=== PATIENT | female | born 1965 | race Caucasian/White ===

== ENCOUNTER 2016-11-12 18:00 | Inpatient (IN) | payer MEDICAID ==
[~2016-11-12] VITALS: Ht 162.6 cm; Wt 83.0 kg
[~2016-11-12 18:00] MED LIST: ALPRAZOLAM; AMITRIPTYLINE H10 M1 PO; ASPIRIN E.C. 8181 MG PO; BACTRIM 400 MG-1 TAB PO; CANA100T PO; CLONAZEPAM PO; COLACE 100100 MG/CAP PO; DESYREL 50MG50 MG PO; DILAUDID 2MG TAB2 MG PO; DITROPAN 5MG TAB5 MG PO; FLAGYL500 MG PO; HARVONI PO; HUMULIN N 10100 U/ML SC; HUMULIN R 10100 U/ML SC; HYDROCODONE/APAP; IBU800 M1 PO; INSULIN 50/5100 U/ML SQ; LANTUS100 U/ML SC; LEVAQUIN 750MG750 M1 PO; LEVEMIR100 U/ML SC; LEVEMIR100 U/ML SQ; LITHIUM CARBON150 MG PO; LORTAB 5/500 501 TAB PO; LYRICA50 MG PO; MACROBID 1100 MG/CAP PO; MIRALAX PA17 GM/Dose PO; NAPROSYN500 MG PO; NEURONTIN100 MG PO; NEURONTIN300 MG/CAP PO; NORCO 325 MG-101 TAB; NORCO 325 MG-101 TAB PO; NORCO 325 MG-51 TAB PO; NORCO 325 MG-7.1 TAB PO; NOVOLOG 100U100 U/M1 SC; NOVOLOG 100U100 U/M1 SQ; NOVOLOG FLEX100 U/ML SC; PAXIL 10MG10 MG PO; PAXIL PO; PERCOCET 325 MG1 TA2 PO; PERCR 7.5 PO; PRILOSEC 20MG20 MG PO; REGLAN 10MG10 MG/TAB PO; SENNA8.6 MG PO; TEGRETOL; TRIAMCINOLONE0.1% TP; ULTRAM 50MG TAB50 MG PO; VANCOCIN H125 MG/CAP PO; VICODIN 5/5001 UDTAB PO; ZOFRAN ODT4 MG PO; ZOFRAN ODT8 MG PO; ZOFRAN4 MG PO; ZOFRAN8 MG PO
[2016-11-12 19:07] LABS: BASO % 0.4 % (0.0-2.0); EOS # 0.1 (0.0-0.7); GRAN # 1.4 (1.4-6.5); GRAN % 54.9 % (42.2-75.2); LYMPH # 0.8 (1.2-3.4); LYMPH % 33.5 % (20.0-51.0); MEAN CELL VOLUME 77 fl (80.0-100.0); MEAN CORPUSCULAR HGB CONC 29 g/dl (33.0-37.0); MEAN PLATELET VOLUME 11.7 fl (7.4-10.4); MONO # 0.2 (0.1-0.6); MONO % 6.8 % (1.7-9.3); PLATELET COUNT 122 K/mm3 (130-400); REDCELL DISTRIBUTION WIDTH-CV 16.9 % (11.5-14.5); WHITE BLOOD COUNT 2.5 K/mm3 (4.8-10.8)
[2016-11-12 19:10] VITALS: BP 157/80; PULSE 94; TEMP 98.1
[2016-11-12 19:12] LABS: HEMATOCRIT 20.7 % (37.0-47.0); HEMOGLOBIN 5.9 g/dl (12.5-16.0); MEAN CORPUSCULAR HEMOGLOBIN 22 pg (27.0-31.0)
[2016-11-12] MEDS ORDERED: LEVEMIR100 U/ML SQ (19:24)
[2016-11-12] MEDS ORDERED: LYRICA 50MG CAP50 MG PO (19:26)
[2016-11-12] MEDS ORDERED: AMITRIPTYLINE H25 M1 PO (19:27)
[2016-11-12] MEDS ORDERED: ZESTRIL 5MG5 MG PO (19:28)
[2016-11-12] MEDS ORDERED: PRILOSEC 20MG20 MG PO (19:29)
[2016-11-12] MEDS ORDERED: [UNRECOGNIZED DRUG - OTHER] (19:30)
[2016-11-12 20:33] LABS: INR 1.1 (0.8-3.0); PROTHROMBIN TIME 12.1 SECONDS (9.7-12.8)
[2016-11-13] VITALS (18 sets, daily range): BP systolic 103–177; BP diastolic 63–80; PULSE 85–111; TEMP 97.8–98.9
[2016-11-13 08:55] LABS: BASO % 0.4 % (0.0-2.0); EOS # 0.1 (0.0-0.7); GRAN # 1.4 (1.4-6.5); GRAN % 51.8 % (42.2-75.2); LYMPH % 34.7 % (20.0-51.0); MEAN CELL VOLUME 79 fl (80.0-100.0); MEAN CORPUSCULAR HGB CONC 28 g/dl (33.0-37.0); MEAN PLATELET VOLUME 10.5 fl (7.4-10.4); MONO # 0.2 (0.1-0.6); MONO % 8.7 % (1.7-9.3); PLATELET COUNT 118 K/mm3 (130-400); RED BLOOD COUNT 3.09 M/mm3 (4.10-5.30); REDCELL DISTRIBUTION WIDTH-CV 17.1 % (11.5-14.5); WHITE BLOOD COUNT 2.8 K/mm3 (4.8-10.8)
[2016-11-13 08:58] LABS: HEMATOCRIT 24.4 % (37.0-47.0); HEMOGLOBIN 6.9 g/dl (12.5-16.0); MEAN CORPUSCULAR HEMOGLOBIN 22 pg (27.0-31.0)
[2016-11-13 09:11] LABS: ALBUMIN 3.5 gm/dL (3.5-5.0); CALCIUM 8.5 mg/dL (8.4-10.2); CREATININE, serum 0.72 mg/dL (0.52-1.25); POTASSIUM 4.2 mmol/L (3.4-5.0); TOTAL PROTEIN 7.3 gm/dL (6.4-8.2)
[2016-11-13 09:36] LABS: BILIRUBIN,TOTAL 0.7 mg/dL (0.0-1.0)
[2016-11-13 09:37] LABS: BILIRUBIN,DIRECT 0.5 mg/dL (0.0-0.4)
[2016-11-13 18:54] LABS: HEMATOCRIT 27.3 % (37.0-47.0); HEMOGLOBIN 8.3 g/dl (12.5-16.0)
[2016-11-14 04:10] VITALS: BP 155/75; PULSE 93; TEMP 98.5
[2016-11-14 07:31] LABS: HEMOGLOBIN 7.8 g/dl (12.5-16.0)
[2016-11-14 07:39] VITALS: BP 153/71; PULSE 91; TEMP 97
[2016-11-14 08:11] VITALS: BP 154/72; PULSE 93; TEMP 97
[2016-11-14 11:34] LABS: HEMATOCRIT 27.8 % (37.0-47.0); HEMOGLOBIN 8.3 g/dl (12.5-16.0)
[2016-11-14 11:40] VITALS: BP 144/74; PULSE 91; TEMP 98.4
[2016-11-14 16:05] VITALS: BP 153/77; PULSE 86; TEMP 97.1
[2016-11-14] MEDS ORDERED: FERROUS SU325 MG/TAB PO (16:52)
== END 2016-11-14 17:31 | disposition home or self-care (01) | DRG 812 ==
LOC: MEDICAL 18:00
PROVIDERS: Family Medicine; Internal Medicine; Internal Medicine Gastroenterology; Physician Assistant
PROC: 0DJ08ZZ Inspection of Upper Intestinal Tract, Via Natural or Artificial Opening Endoscopic (ICD-10-PCS; principal; 2016-11-14 14:00)
PROC: 0DJD8ZZ Inspection of Lower Intestinal Tract, Via Natural or Artificial Opening Endoscopic (ICD-10-PCS; 2016-11-14 14:00)
DX: D50.0 Iron deficiency anemia secondary to blood loss (chronic) (principal); I85.10 Secondary esophageal varices without bleeding; K64.8 Other hemorrhoids; K74.60 Unspecified cirrhosis of liver; B19.20 Unspecified viral hepatitis C without hepatic coma; E11.42 Type 2 diabetes mellitus with diabetic polyneuropathy; F31.9 Bipolar disorder, unspecified; D69.6 Thrombocytopenia, unspecified; R51 Headache; Z79.4 Long term (current) use of insulin; Z86.73 Personal history of transient ischemic attack (TIA), and cerebral infarction without residual deficits
CPT/HCPCS: 99222-AI; 99233-AI; 99239; C9113; J1170; J1815; J1940; J2405; J2550; J2704; J7030; P9016

== ENCOUNTER 2018-06-18 20:06 | Emergency (ER) | payer MEDICAID ==
[~2018-06-18] VITALS: Ht 162.6 cm; Wt 64.5 kg
[~2018-06-18 20:06] MED LIST changes: +AMITRIPTYLINE H25 M1 PO; +FERROUS SU325 MG/TAB PO; +LYRICA 50MG CAP50 MG PO; +ZESTRIL 5MG5 MG PO; +[UNRECOGNIZED DRUG - OTHER]
[2018-06-18 20:14] VITALS: TEMP 97.7
[2018-06-18 20:26] LABS: COLLECTION METHOD CLEAN CATCH
[2018-06-18 20:36] LABS: MUCOUS Present /lpf; PH 5 (5-8); SQUAMOUS EPITHELIAL None Seen /hpf; URINE APPEARANCE Clear; URINE BACTERIA None Seen /hpf; URINE BILIRUBIN Negative (NEGATIVE); URINE BLOOD Negative (NEGATIVE); URINE COLOR Yellow; URINE GLUCOSE 1+ (NEGATIVE); URINE KETONE Negative (NEGATIVE); URINE LEUKOCYTE ESTERASE Negative (NEGATIVE); URINE NITRATE Negative (NEGATIVE); URINE PROTEIN(semi-quant) 2+ (NEGATIVE); URINE UROBILINOGEN Negative (NEGATIVE)
[2018-06-18 20:55] LABS: BASO % 0.4 % (0.0-2.0); EOS # 0.1 (0.0-0.7); EOS % 5.2 % (0-4.0); GRAN # 1.6 (1.4-6.5); GRAN % 58.6 % (42.2-75.2); LYMPH # 0.7 (1.2-3.4); LYMPH % 24.7 % (20.0-51.0); MEAN CELL VOLUME 85 fl (80.0-100.0); MEAN CORPUSCULAR HGB CONC 29 g/dl (33.0-37.0); MEAN PLATELET VOLUME 10.6 fl (7.4-10.4); MONO # 0.3 (0.1-0.6); MONO % 10.7 % (1.7-9.3); PLATELET COUNT 134 K/mm3 (130-400); RED BLOOD COUNT 3.41 M/mm3 (4.10-5.30)
[2018-06-18 21:01] LABS: HEMOGLOBIN 8.4 g/dl (12.5-16.0); MEAN CORPUSCULAR HEMOGLOBIN 25 pg (27.0-31.0)
[2018-06-18 21:05] LABS: ALBUMIN 2.9 gm/dL (3.5-5.0); BILIRUBIN,TOTAL 0.2 mg/dL (0.0-1.0); CALCIUM 8.3 mg/dL (8.4-10.2); CREATININE, serum 0.76 (0.52-1.25); POTASSIUM 3.8 mmol/L (3.4-5.0); TOTAL PROTEIN 6.4 gm/dL (6.4-8.2)
[2018-06-18 21:08] LABS: INR 1.1 (0.8-3.0); PROTHROMBIN TIME 12.8 SECONDS (9.7-12.8)
[2018-06-18] MEDS ORDERED: PRINIVIL20 MG PO (21:15)
[2018-06-18] MEDS ORDERED: LASIX 20MG TABL20 MG PO (21:16)
[2018-06-18] MEDS ORDERED: CONSTULOSE 20G/30ML PO (21:16)
[2018-06-18] MEDS ORDERED: NEURONTIN300 MG/CAP PO (21:19)
[2018-06-18 22:17] LABS: PERITONEAL -POLYMORPHONUCLEAR 7.4 % (0-25); PERITONEAL FLUID RBC 1000 /mm3 (0-0)
[2018-06-18] MEDS ORDERED: NORCO 325 MG-51 TAB PO (22:43)
[2018-06-18 23:30] VITALS: BP 127/66; PULSE 81
== END 2018-06-18 23:37 | disposition home or self-care (01) ==
LOC: COL.ER 20:06
PROVIDERS: Family Medicine
DX: K74.60 Unspecified cirrhosis of liver (principal); R18.8 Other ascites; E11.9 Type 2 diabetes mellitus without complications; I10 Essential (primary) hypertension; Z87.891 Personal history of nicotine dependence; Z79.4 Long term (current) use of insulin
CPT/HCPCS: J2270; J2405; J7030

== ENCOUNTER 2018-06-25 12:35 | Emergency (ER) | payer MEDICAID ==
[~2018-06-25] VITALS: Ht 162.6 cm; Wt 65.5 kg
[~2018-06-25 12:35] MED LIST changes: +CONSTULOSE 20G/30ML PO; +LASIX 20MG TABL20 MG PO; +PRINIVIL20 MG PO
[2018-06-25 12:40] VITALS: TEMP 97.8
[2018-06-25 13:18] LABS: BASO % 0.3 % (0.0-2.0); EOS # 0.1 (0.0-0.7); EOS % 3.7 % (0-4.0); GRAN # 2.1 (1.4-6.5); GRAN % 69.4 % (42.2-75.2); LYMPH # 0.6 (1.2-3.4); LYMPH % 19.9 % (20.0-51.0); MEAN CELL VOLUME 85 fl (80.0-100.0); MEAN CORPUSCULAR HGB CONC 30 g/dl (33.0-37.0); MEAN PLATELET VOLUME 9.8 fl (7.4-10.4); MONO # 0.2 (0.1-0.6); MONO % 6.4 % (1.7-9.3); PLATELET COUNT 125 K/mm3 (130-400); RED BLOOD COUNT 3.47 M/mm3 (4.10-5.30)
[2018-06-25 13:21] LABS: BILIRUBIN,TOTAL 0.3 mg/dL (0.0-1.0); C-REACTIVE PROTEIN 0.6 mg/dL (0.0-0.9); CREATININE, serum 0.66 (0.52-1.25); POTASSIUM 4.6 mmol/L (3.4-5.0); TOTAL PROTEIN 6.5 gm/dL (6.4-8.2)
[2018-06-25 13:22] LABS: HEMATOCRIT 29.5 % (37.0-47.0); HEMOGLOBIN 8.8 g/dl (12.5-16.0); MEAN CORPUSCULAR HEMOGLOBIN 25 pg (27.0-31.0)
[2018-06-25 14:39] VITALS: BP 131/66; PULSE 74
[2018-06-27] MEDS ORDERED: ALDACTONE50 MG PO (11:32)
[2018-06-27] MEDS ORDERED: INDERAL LA 60MG60 MG PO (11:32)
[2018-06-27] MEDS ORDERED: LASIX 40MG TABL40 MG PO (11:34)
[2018-06-27] MEDS ORDERED: REGLAN 10MG10 MG/TAB PO (11:35)
== END 2018-06-25 14:49 | disposition home or self-care (01) ==
LOC: COL.ER 12:35
PROVIDERS: Physician Assistant
DX: R10.9 Unspecified abdominal pain (principal); E11.9 Type 2 diabetes mellitus without complications; F32.9 Major depressive disorder, single episode, unspecified; F41.9 Anxiety disorder, unspecified; K58.9 Irritable bowel syndrome, unspecified; Z86.19 Personal history of other infectious and parasitic diseases; Z79.4 Long term (current) use of insulin
CPT/HCPCS: J2270; J2405; J7030

== ENCOUNTER → 2018-06-27 | Outpatient (CLI) | payer MEDICAID ==
[~2018-06-27] VITALS: Ht 162.6 cm; Wt 61.8 kg
[~2018-06-27] MED LIST changes: +ALDACTONE50 MG PO; +INDERAL LA 60MG60 MG PO; +LASIX 40MG TABL40 MG PO
[2018-06-27 11:21] VITALS: BP 160/83; PULSE 74
[2018-06-27 13:45] VITALS: BP 155/98; PULSE 81
--- NOTE | 2018-06-27 14:00 | NUR ---
pt out to car per wheelchair denies complaints at this time. Pt up and into vehicle without difficulty.
== END ==
LOC: COL.RAD 11:02
DX: B18.2 Chronic viral hepatitis C (principal); K74.60 Unspecified cirrhosis of liver
CPT/HCPCS: 19804

== ENCOUNTER 2018-07-03 22:11 | Emergency (ER) | payer SELFPAY ==
[~2018-07-03] VITALS: Ht 162.6 cm; Wt 63.6 kg
[2018-07-03 22:15] VITALS: TEMP 98.3
[2018-07-03 23:17] LABS: BASO % 0.7 % (0.0-2.0); EOS # 0.1 (0.0-0.7); EOS % 3.3 % (0-4.0); GRAN # 1.8 (1.4-6.5); HEMATOCRIT 36.4 % (37.0-47.0); HEMOGLOBIN 10.2 g/dl (12.5-16.0); LYMPH # 0.9 (1.2-3.4); LYMPH % 28.7 % (20.0-51.0); MEAN CELL VOLUME 95 fl (80.0-100.0); MEAN CORPUSCULAR HEMOGLOBIN 27 pg (27.0-31.0); MEAN CORPUSCULAR HGB CONC 28 g/dl (33.0-37.0); MEAN PLATELET VOLUME 10.8 fl (7.4-10.4); MONO # 0.2 (0.1-0.6); PLATELET COUNT 156 K/mm3 (130-400); RED BLOOD COUNT 3.85 M/mm3 (4.10-5.30); REDCELL DISTRIBUTION WIDTH-CV 21.5 % (11.5-14.5)
[2018-07-03 23:21] LABS: ALBUMIN 3.4 gm/dL (3.5-5.0); BILIRUBIN,TOTAL 0.4 mg/dL (0.0-1.0); CREATININE, serum 0.76 (0.52-1.25); POTASSIUM 4.7 mmol/L (3.4-5.0)
[2018-07-04 00:16] LABS: COLLECTION METHOD CLEAN CATCH
[2018-07-04 00:23] LABS: PH 6 (5-8); SQUAMOUS EPITHELIAL None Seen /hpf; URINE APPEARANCE Clear; URINE BACTERIA None Seen /hpf; URINE BILIRUBIN Negative (NEGATIVE); URINE BLOOD Negative (NEGATIVE); URINE COLOR Yellow; URINE GLUCOSE 1+ (NEGATIVE); URINE KETONE Negative (NEGATIVE); URINE LEUKOCYTE ESTERASE Negative (NEGATIVE); URINE NITRATE Negative (NEGATIVE); URINE PROTEIN(semi-quant) 2+ (NEGATIVE); URINE UROBILINOGEN Negative (NEGATIVE)
[2018-07-04 02:08] VITALS: BP 154/72; PULSE 68
== END 2018-07-04 02:10 | disposition home or self-care (01) ==
LOC: COL.ER 22:11
PROVIDERS: Emergency Medicine
DX: R07.89 Other chest pain (principal); Z79.4 Long term (current) use of insulin; Z87.19 Personal history of other diseases of the digestive system
CPT/HCPCS: J1170; J1885; J2270; J7040; Q9967

== ENCOUNTER 2018-07-12 22:29 | Emergency (ER) | payer MEDICAID ==
[~2018-07-12] VITALS: Ht 162.6 cm; Wt 58.7 kg
[2018-07-12 22:43] VITALS: TEMP 99.1
[2018-07-12 23:41] LABS: BASO % 0.3 % (0.0-2.0); EOS # 0.1 (0.0-0.7); EOS % 2.6 % (0-4.0); GRAN # 1.7 (1.4-6.5); LYMPH % 32.2 % (20.0-51.0); MEAN CELL VOLUME 85 fl (80.0-100.0); MEAN CORPUSCULAR HGB CONC 32 g/dl (33.0-37.0); MEAN PLATELET VOLUME 9.8 fl (7.4-10.4); MONO # 0.3 (0.1-0.6); MONO % 8.6 % (1.7-9.3); PLATELET COUNT 94 K/mm3 (130-400); RED BLOOD COUNT 3.64 M/mm3 (4.10-5.30); REDCELL DISTRIBUTION WIDTH-CV 19.6 % (11.5-14.5)
[2018-07-12 23:46] LABS: INR 1.1 (0.8-3.0); PROTHROMBIN TIME 12.7 SECONDS (9.7-12.8)
[2018-07-12 23:49] LABS: PARTIAL THROMBOPLASTIN TIME 36.3 SECONDS (26.0-37.0)
[2018-07-12 23:51] LABS: HEMATOCRIT 31.1 % (37.0-47.0); HEMOGLOBIN 9.9 g/dl (12.5-16.0); MEAN CORPUSCULAR HEMOGLOBIN 27 pg (27.0-31.0)
[2018-07-12 23:55] LABS: ALANINE AMINOTRANSFERASE 17 U/L (9-52); ALBUMIN 3.4 gm/dL (3.5-5.0); ALKALINE PHOSPHATASE 129 U/L (50-136); ANION GAP 3 mmol/L (7-16); AST,SGOT 27 U/L (15-37); BILIRUBIN,TOTAL 0.4 mg/dL (0.0-1.0); BLOOD UREA NITROGEN 21 mg/dL (7-17); CARBON DIOXIDE 27 mmol/L (22-30); CHLORIDE 104 mmol/L (98-107); CREATININE, serum 0.65 (0.52-1.25); GLUCOSE 327 mg/dL (74-106); LIPASE 93 U/L (23-300); MAGNESIUM 1.8 mg/dL (1.6-2.3); POTASSIUM 4.7 mmol/L (3.4-5.0); SODIUM 135 mmol/L (137-145); TOTAL PROTEIN 6.9 gm/dL (6.4-8.2)
[2018-07-12 23:58] LABS: C-REACTIVE PROTEIN < 0.5 mg/dL (0.0-0.9)
[2018-07-13 00:04] LABS: TROPONIN-I < 0.012 ng/mL (0.000-0.035)
[2018-07-13] MEDS ORDERED: CARAFATE 1GM1 G PO (01:39)
[2018-07-13] MEDS ORDERED: NEXIUM 40MG40 MG PO (01:44)
[2018-07-13 01:51] LABS: COLLECTION METHOD CLEAN CATCH
[2018-07-13 02:34] LABS: MUCOUS Present /lpf; PH 7 (5-8); SQUAMOUS EPITHELIAL 0-2 /hpf; URINE APPEARANCE Hazy; URINE BACTERIA Many /hpf; URINE BILIRUBIN Negative (NEGATIVE); URINE BLOOD 1+ (NEGATIVE); URINE COLOR Yellow; URINE GLUCOSE 2+ (NEGATIVE); URINE KETONE Negative (NEGATIVE); URINE LEUKOCYTE ESTERASE 1+ (NEGATIVE); URINE NITRATE Negative (NEGATIVE); URINE PROTEIN(semi-quant) 2+ (NEGATIVE); URINE UROBILINOGEN Negative (NEGATIVE)
[2018-07-13] MEDS ORDERED: CIPRO 500MG TA500 MG PO (02:48)
[2018-07-13 03:15] VITALS: BP 157/83; PULSE 67
[2018-07-14] MEDS ORDERED: OMNICEF 300MG300 MG PO (16:51)
== END 2018-07-13 03:15 | disposition home or self-care (01) ==
LOC: COL.ER 22:29
PROVIDERS: Emergency Medicine
DX: N39.0 Urinary tract infection, site not specified (principal); K58.9 Irritable bowel syndrome, unspecified; Z79.4 Long term (current) use of insulin
CPT/HCPCS: J1170; J7050

== ENCOUNTER 2018-07-30 16:56 | Emergency (ER) | payer MEDICAID ==
[~2018-07-30] VITALS: Ht 162.6 cm; Wt 59.1 kg
[~2018-07-30 16:56] MED LIST changes: +CARAFATE 1GM1 G PO; +CIPRO 500MG TA500 MG PO; +NEXIUM 40MG40 MG PO; +OMNICEF 300MG300 MG PO
[2018-07-30 17:06] VITALS: BP 162/79; TEMP 97.2
[2018-07-30 17:36] LABS: COLLECTION METHOD CLEAN CATCH
[2018-07-30 17:41] LABS: BASO % 0.9 % (0.0-2.0); EOS # 0.1 (0.0-0.7); EOS % 5.3 % (0-4.0); GRAN # 1.3 (1.4-6.5); GRAN % 57.4 % (42.2-75.2); HEMATOCRIT 32.6 % (37.0-47.0); HEMOGLOBIN 10.3 g/dl (12.5-16.0); LYMPH # 0.7 (1.2-3.4); LYMPH % 29.8 % (20.0-51.0); MEAN CELL VOLUME 88 fl (80.0-100.0); MEAN CORPUSCULAR HEMOGLOBIN 28 pg (27.0-31.0); MEAN CORPUSCULAR HGB CONC 32 g/dl (33.0-37.0); MEAN PLATELET VOLUME 10.1 fl (7.4-10.4); MONO # 0.1 (0.1-0.6); MONO % 6.2 % (1.7-9.3); PLATELET COUNT 96 K/mm3 (130-400); RED BLOOD COUNT 3.72 M/mm3 (4.10-5.30); REDCELL DISTRIBUTION WIDTH-CV 18.1 % (11.5-14.5)
[2018-07-30 17:45] LABS: PH 6 (5-8); SQUAMOUS EPITHELIAL 0-2 /hpf; URINE APPEARANCE Cloudy; URINE BACTERIA Moderate /hpf; URINE BILIRUBIN Negative (NEGATIVE); URINE BLOOD 1+ (NEGATIVE); URINE COLOR Yellow; URINE GLUCOSE Negative (NEGATIVE); URINE KETONE Negative (NEGATIVE); URINE LEUKOCYTE ESTERASE 2+ (NEGATIVE); URINE NITRATE Positive (NEGATIVE); URINE PROTEIN(semi-quant) 3+ (NEGATIVE); URINE UROBILINOGEN Negative (NEGATIVE)
[2018-07-30 17:52] LABS: ALANINE AMINOTRANSFERASE 26 U/L (9-52); ALBUMIN 3.5 gm/dL (3.5-5.0); ALKALINE PHOSPHATASE 166 U/L (50-136); ANION GAP 6 mmol/L (7-16); AST,SGOT 37 U/L (15-37); BILIRUBIN,TOTAL 0.4 mg/dL (0.0-1.0); BLOOD UREA NITROGEN 20 mg/dL (7-17); CALCIUM 9.2 mg/dL (8.4-10.2); CARBON DIOXIDE 30 mmol/L (22-30); CHLORIDE 101 mmol/L (98-107); CREATININE, serum 0.64 (0.52-1.25); GLUCOSE 277 mg/dL (74-106); LIPASE 130 U/L (23-300); POTASSIUM 4.7 mmol/L (3.4-5.0); SODIUM 137 mmol/L (137-145); TOTAL PROTEIN 7.2 gm/dL (6.4-8.2)
[2018-07-30 17:54] LABS: C-REACTIVE PROTEIN < 0.5 mg/dL (0.0-0.9)
[2018-07-30] MEDS ORDERED: NORCO 325 MG-51 TAB PO (18:57)
[2018-07-30] MEDS ORDERED: ZOFRAN 4MG T4 MG/TAB PO (18:57)
[2018-07-30] MEDS ORDERED: CIPRO 500MG TA500 MG PO (18:57)
[2018-07-30 19:10] VITALS: PULSE 97
[2018-08-02] MEDS ORDERED: MACROBID 1100 MG/CAP PO (11:10)
== END 2018-07-30 19:10 | disposition home or self-care (01) ==
LOC: COL.ER 16:56
PROVIDERS: Emergency Medicine
DX: N12 Tubulo-interstitial nephritis, not specified as acute or chronic (principal); N39.0 Urinary tract infection, site not specified; Z79.4 Long term (current) use of insulin
CPT/HCPCS: A4216; J0696; J2405; J3010

== ENCOUNTER 2018-08-07 22:17 | Emergency (ER) | payer MEDICAID ==
[~2018-08-07] VITALS: Ht 162.6 cm; Wt 61.9 kg
[~2018-08-07 22:17] MED LIST changes: +ZOFRAN 4MG T4 MG/TAB PO
[2018-08-07 22:31] VITALS: TEMP 98.3
[2018-08-07 23:26] LABS: BASO % 0.3 % (0.0-2.0); EOS # 0.2 (0.0-0.7); EOS % 3.9 % (0-4.0); GRAN # 2.2 (1.4-6.5); GRAN % 58.5 % (42.2-75.2); HEMOGLOBIN 11.2 g/dl (12.5-16.0); LYMPH # 1.1 (1.2-3.4); LYMPH % 28.2 % (20.0-51.0); MEAN CELL VOLUME 87 fl (80.0-100.0); MEAN CORPUSCULAR HEMOGLOBIN 29 pg (27.0-31.0); MEAN CORPUSCULAR HGB CONC 33 g/dl (33.0-37.0); MEAN PLATELET VOLUME 9.7 fl (7.4-10.4); MONO # 0.3 (0.1-0.6); MONO % 8.6 % (1.7-9.3); PLATELET COUNT 116 K/mm3 (130-400); RED BLOOD COUNT 3.92 M/mm3 (4.10-5.30); REDCELL DISTRIBUTION WIDTH-CV 17.2 % (11.5-14.5)
[2018-08-07 23:27] LABS: HEMATOCRIT 34.2 % (37.0-47.0)
[2018-08-07 23:37] LABS: ALANINE AMINOTRANSFERASE 22 U/L (9-52); ALBUMIN 3.5 gm/dL (3.5-5.0); ALKALINE PHOSPHATASE 179 U/L (50-136); ANION GAP 10 mmol/L (7-16); AST,SGOT 40 U/L (15-37); BILIRUBIN,TOTAL 0.4 mg/dL (0.0-1.0); BLOOD UREA NITROGEN 21 mg/dL (7-17); C-REACTIVE PROTEIN < 0.5 mg/dL (0.0-0.9); CALCIUM 9.4 mg/dL (8.4-10.2); CARBON DIOXIDE 27 mmol/L (22-30); CHLORIDE 105 mmol/L (98-107); CREATININE, serum 0.67 (0.52-1.25); GLUCOSE 60 mg/dL (74-106); LIPASE 113 U/L (23-300); POTASSIUM 4.2 mmol/L (3.4-5.0); SODIUM 142 mmol/L (137-145); TOTAL PROTEIN 7.2 gm/dL (6.4-8.2)
[2018-08-08 01:11] VITALS: BP 146/86; PULSE 107
== END 2018-08-08 01:15 | disposition home or self-care (01) ==
LOC: COL.ER 22:17
PROVIDERS: Emergency Medicine
DX: E10.65 Type 1 diabetes mellitus with hyperglycemia (principal); R10.12 Left upper quadrant pain; B19.20 Unspecified viral hepatitis C without hepatic coma; I10 Essential (primary) hypertension; Z88.0 Allergy status to penicillin; Z88.8 Allergy status to other drugs, medicaments and biological substances
CPT/HCPCS: J1170; J2405

== ENCOUNTER 2018-08-14 23:27 | Emergency (ER) | payer MEDICAID ==
[~2018-08-14] VITALS: Ht 157.5 cm; Wt 63.6 kg
[2018-08-14 23:54] VITALS: BP 165/96; TEMP 97.4
[2018-08-15 01:06] LABS: BASO % 0.3 % (0.0-2.0); EOS # 0.1 (0.0-0.7); EOS % 4.5 % (0-4.0); GRAN # 1.8 (1.4-6.5); HEMATOCRIT 35.2 % (37.0-47.0); HEMOGLOBIN 11.4 g/dl (12.5-16.0); LYMPH # 0.7 (1.2-3.4); LYMPH % 25.3 % (20.0-51.0); MEAN CELL VOLUME 88 fl (80.0-100.0); MEAN CORPUSCULAR HEMOGLOBIN 29 pg (27.0-31.0); MEAN CORPUSCULAR HGB CONC 32 g/dl (33.0-37.0); MEAN PLATELET VOLUME 10.2 fl (7.4-10.4); MONO # 0.2 (0.1-0.6); MONO % 7.6 % (1.7-9.3); PLATELET COUNT 119 K/mm3 (130-400); RED BLOOD COUNT 3.98 M/mm3 (4.10-5.30); REDCELL DISTRIBUTION WIDTH-CV 16.5 % (11.5-14.5)
[2018-08-15 01:17] LABS: C-REACTIVE PROTEIN < 0.5 mg/dL (0.0-0.9)
[2018-08-15 01:18] LABS: INR 1.1 (0.8-3.0); PROTHROMBIN TIME 12.5 SECONDS (9.7-12.8)
[2018-08-15 01:21] LABS: PARTIAL THROMBOPLASTIN TIME 38.9 SECONDS (26.0-37.0)
[2018-08-15 01:30] LABS: ALANINE AMINOTRANSFERASE 43 U/L (9-52); ALBUMIN 3.2 gm/dL (3.5-5.0); ALKALINE PHOSPHATASE 156 U/L (50-136); ANION GAP 9 mmol/L (7-16); AST,SGOT 43 U/L (15-37); BILIRUBIN,TOTAL 0.5 mg/dL (0.0-1.0); BLOOD UREA NITROGEN 26 mg/dL (7-17); CALCIUM 9.1 mg/dL (8.4-10.2); CARBON DIOXIDE 24 mmol/L (22-30); CHLORIDE 106 mmol/L (98-107); CREATININE, serum 0.73 (0.52-1.25); GLUCOSE 202 mg/dL (74-106); POTASSIUM 4.9 mmol/L (3.4-5.0); SODIUM 140 mmol/L (137-145); TOTAL PROTEIN 6.6 gm/dL (6.4-8.2)
[2018-08-15 01:33] LABS: ERYTHROCYTE SEDIMENTATION RATE 22 mm/hr (0-30)
[2018-08-15 03:40] VITALS: PULSE 95
== END 2018-08-15 03:40 | disposition home or self-care (01) ==
LOC: COL.ER 23:27
PROVIDERS: Emergency Medicine
DX: R23.3 Spontaneous ecchymoses (principal); E11.9 Type 2 diabetes mellitus without complications; F31.9 Bipolar disorder, unspecified; Z86.19 Personal history of other infectious and parasitic diseases; Z79.4 Long term (current) use of insulin
CPT/HCPCS: J2270; J2405

== ENCOUNTER 2018-09-05 19:02 | Emergency (ER) | payer MEDICAID ==
[~2018-09-05] VITALS: Ht 162.6 cm; Wt 63.6 kg
[2018-09-05 19:08] VITALS: BP 124/77; TEMP 97
[2018-09-05 20:13] LABS: BASO % 0.8 % (0.0-2.0); EOS # 0.2 (0.0-0.7); EOS % 4.2 % (0-4.0); GRAN # 3.5 (1.4-6.5); GRAN % 65.9 % (42.2-75.2); HEMATOCRIT 37.4 % (37.0-47.0); HEMOGLOBIN 12.5 g/dl (12.5-16.0); LYMPH # 1.1 (1.2-3.4); LYMPH % 20.2 % (20.0-51.0); MEAN CELL VOLUME 86 fl (80.0-100.0); MEAN CORPUSCULAR HEMOGLOBIN 29 pg (27.0-31.0); MEAN CORPUSCULAR HGB CONC 33 g/dl (33.0-37.0); MEAN PLATELET VOLUME 10.8 fl (7.4-10.4); MONO # 0.5 (0.1-0.6); MONO % 8.7 % (1.7-9.3); PLATELET COUNT 145 K/mm3 (130-400); RED BLOOD COUNT 4.34 M/mm3 (4.10-5.30); REDCELL DISTRIBUTION WIDTH-CV 14.1 % (11.5-14.5)
[2018-09-05 20:17] LABS: INR 1.1 (0.8-3.0); PROTHROMBIN TIME 12.7 SECONDS (9.7-12.8)
[2018-09-05 20:20] LABS: PARTIAL THROMBOPLASTIN TIME 38.9 SECONDS (26.0-37.0)
[2018-09-05 20:27] LABS: ALANINE AMINOTRANSFERASE 21 U/L (9-52); ALBUMIN 3.9 gm/dL (3.5-5.0); ALKALINE PHOSPHATASE 240 U/L (50-136); ANION GAP 10 mmol/L (7-16); AST,SGOT 40 U/L (15-37); BILIRUBIN,TOTAL 0.4 mg/dL (0.0-1.0); BLOOD UREA NITROGEN 32 mg/dL (7-17); CARBON DIOXIDE 33 mmol/L (22-30); CHLORIDE 97 mmol/L (98-107); CREATININE, serum 1.03 (0.52-1.25); GLUCOSE 171 mg/dL (74-106); LIPASE 83 U/L (23-300); SODIUM 139 mmol/L (137-145); TOTAL PROTEIN 8.2 gm/dL (6.4-8.2)
[2018-09-05 20:29] LABS: C-REACTIVE PROTEIN < 0.5 mg/dL (0.0-0.9)
[2018-09-05 20:57] LABS: COLLECTION METHOD CLEAN CATCH
[2018-09-05 21:04] LABS: PH 6 (5-8); SQUAMOUS EPITHELIAL 0-2 /hpf; URINE APPEARANCE Clear; URINE BACTERIA None Seen /hpf; URINE BILIRUBIN Negative (NEGATIVE); URINE BLOOD Negative (NEGATIVE); URINE COLOR Straw; URINE GLUCOSE 3+ (NEGATIVE); URINE KETONE Negative (NEGATIVE); URINE LEUKOCYTE ESTERASE Negative (NEGATIVE); URINE NITRATE Negative (NEGATIVE); URINE PROTEIN(semi-quant) 1+ (NEGATIVE); URINE RBC 0-2 /hpf; URINE UROBILINOGEN Negative (NEGATIVE)
[2018-09-05 23:58] VITALS: PULSE 99
== END 2018-09-06 00:02 | disposition home or self-care (01) ==
LOC: COL.ER 19:02
PROVIDERS: Physician Assistant
DX: K70.30 Alcoholic cirrhosis of liver without ascites (principal); E11.9 Type 2 diabetes mellitus without complications; Z88.0 Allergy status to penicillin; Z98.51 Tubal ligation status; F10.20 Alcohol dependence, uncomplicated
CPT/HCPCS: J1170; J2405; J3010; J7040

== ENCOUNTER 2019-08-31 17:49 | Emergency (ER) | payer MEDICAID ==
[~2019-08-31] VITALS: Ht 162.6 cm; Wt 63.6 kg
[2019-08-31 17:55] VITALS: TEMP 98.2
[2019-08-31 18:26] LABS: BASO % 0.9 % (0.0-2.0); EOS # 0.2 (0.0-0.7); EOS % 5.2 % (0-4.0); GRAN # 1.9 (1.4-6.5); GRAN % 57.4 % (42.2-75.2); LYMPH # 0.9 (1.2-3.4); LYMPH % 27.3 % (20.0-51.0); MEAN CELL VOLUME 82 fl (80.0-100.0); MEAN CORPUSCULAR HGB CONC 31 g/dl (33.0-37.0); MEAN PLATELET VOLUME 10.4 fl (7.4-10.4); MONO # 0.3 (0.1-0.6); MONO % 8.6 % (1.7-9.3); PLATELET COUNT 168 K/mm3 (130-400); RED BLOOD COUNT 3.45 M/mm3 (4.10-5.30); REDCELL DISTRIBUTION WIDTH-CV 15.3 % (11.5-14.5)
[2019-08-31 18:30] LABS: HEMATOCRIT 28.2 % (37.0-47.0); HEMOGLOBIN 8.7 g/dl (12.5-16.0); MEAN CORPUSCULAR HEMOGLOBIN 25 pg (27.0-31.0)
[2019-08-31 18:38] LABS: ALANINE AMINOTRANSFERASE 12 U/L (4-34); ALBUMIN 2.8 gm/dL (3.5-5.0); ALKALINE PHOSPHATASE 140 U/L (50-136); ANION GAP 5 mmol/L (7-16); AST,SGOT 24 U/L (15-37); BILIRUBIN,TOTAL 0.3 mg/dL (0.0-1.0); BLOOD UREA NITROGEN 25 mg/dL (7-17); CALCIUM 8.2 mg/dL (8.4-10.2); CARBON DIOXIDE 25 mmol/L (22-30); CHLORIDE 104 mmol/L (98-107); CREATININE, serum 1.08 (0.52-1.25); GLUCOSE 366 mg/dL (74-106); POTASSIUM 4.5 mmol/L (3.4-5.0); SODIUM 133 mmol/L (137-145); TOTAL PROTEIN 6.3 gm/dL (6.4-8.2)
[2019-08-31 18:41] LABS: C-REACTIVE PROTEIN < 0.5 mg/dL (0.0-0.9)
[2019-08-31 19:31] LABS: COLLECTION METHOD CLEAN CATCH
[2019-08-31 19:58] LABS: MUCOUS Present /lpf; PH 6 (5-8); SQUAMOUS EPITHELIAL 0-2 /hpf; URINE APPEARANCE Clear; URINE BACTERIA None Seen /hpf; URINE BILIRUBIN Negative (NEGATIVE); URINE BLOOD 1+ (NEGATIVE); URINE COLOR Yellow; URINE GLUCOSE 2+ (NEGATIVE); URINE KETONE Negative (NEGATIVE); URINE LEUKOCYTE ESTERASE Negative (NEGATIVE); URINE NITRATE Negative (NEGATIVE); URINE PROTEIN(semi-quant) 2+ (NEGATIVE); URINE RBC 0-2 /hpf; URINE UROBILINOGEN Negative (NEGATIVE)
[2019-08-31 21:42] VITALS: BP 124/91; PULSE 73
[2019-09-04] MEDS ORDERED: ROXICODONE 55 MG/TAB PO (15:08)
== END 2019-08-31 21:45 | disposition home or self-care (01) ==
LOC: COL.ER 17:49
PROVIDERS: Emergency Medicine
DX: K42.0 Umbilical hernia with obstruction, without gangrene (principal); B19.20 Unspecified viral hepatitis C without hepatic coma; Z79.4 Long term (current) use of insulin
CPT/HCPCS: J1170; J1630; J2405; J3010; Q9967

== ENCOUNTER 2019-09-02 19:15 | Inpatient (IN) | payer OTHER ==
[~2019-09-02] VITALS: Wt 67.7 kg
[2019-09-02 20:09] LABS: BASO % 0.7 % (0.0-2.0); EOS # 0.1 (0.0-0.7); EOS % 4.1 % (0-4.0); GRAN # 1.9 (1.4-6.5); GRAN % 63.2 % (42.2-75.2); LYMPH # 0.7 (1.2-3.4); LYMPH % 25.2 % (20.0-51.0); MEAN CELL VOLUME 83 fl (80.0-100.0); MEAN CORPUSCULAR HGB CONC 31 g/dl (33.0-37.0); MEAN PLATELET VOLUME 10.7 fl (7.4-10.4); MONO # 0.2 (0.1-0.6); MONO % 6.5 % (1.7-9.3); PLATELET COUNT 152 K/mm3 (130-400); RED BLOOD COUNT 3.09 M/mm3 (4.10-5.30); REDCELL DISTRIBUTION WIDTH-CV 15.2 % (11.5-14.5)
[2019-09-02 20:18] LABS: HEMATOCRIT 25.6 % (37.0-47.0); HEMOGLOBIN 7.9 g/dl (12.5-16.0); MEAN CORPUSCULAR HEMOGLOBIN 26 pg (27.0-31.0)
[2019-09-02 20:27] LABS: COLLECTION METHOD CLEAN CATCH
[2019-09-02 20:36] LABS: PH 6 (5-8); SQUAMOUS EPITHELIAL 0-2 /hpf; URINE APPEARANCE Clear; URINE BACTERIA None Seen /hpf; URINE BILIRUBIN Negative (NEGATIVE); URINE BLOOD 1+ (NEGATIVE); URINE COLOR Yellow; URINE GLUCOSE 2+ (NEGATIVE); URINE KETONE Negative (NEGATIVE); URINE LEUKOCYTE ESTERASE Negative (NEGATIVE); URINE NITRATE Negative (NEGATIVE); URINE PROTEIN(semi-quant) 2+ (NEGATIVE)
[2019-09-02 20:40] LABS: ALBUMIN 2.7 gm/dL (3.5-5.0); BILIRUBIN,TOTAL 0.4 mg/dL (0.0-1.0); C-REACTIVE PROTEIN 1.2 mg/dL (0.0-0.9); CALCIUM 7.9 mg/dL (8.4-10.2); CREATININE, serum 0.94 (0.52-1.25); POTASSIUM 4.4 mmol/L (3.4-5.0); TOTAL PROTEIN 6.2 gm/dL (6.4-8.2)
[2019-09-02 21:07] LABS: INR 1.1 (0.8-3.0); PROTHROMBIN TIME 11.8 SECONDS (9.7-12.8)
--- NOTE | 2019-09-02 23:00 | NUR ---
patient came to the unit from the emergency department. when the patient arrived to the unit she was very droggy because of pain medications. patient was barely able to stay awake to answer SANTIAGO Choudhary questions. patient would not answer my questions. patient is on 2 L of oxygen and stating 98-100%. Pulse oximetry on the patient finger to monitor saturations. when asking patient about her medications that she takes, her reponse was that they were already in the computer. unable to update pharmacy prefercene at this time because of status.
[2019-09-02 23:03] VITALS: BP 138/74; PULSE 73; TEMP 97.2
[2019-09-02 23:48] VITALS: BP 129/63; PULSE 73; TEMP 97.8
[2019-09-03] VITALS (12 sets, daily range): BP systolic 122–180; BP diastolic 45–78; PULSE 67–82; TEMP 97.3–98.1
--- NOTE | 2019-09-03 04:32 | NUR ---
patient was up to use the restroom with the help of the aide. patient more alert and talking to the staff
--- NOTE | 2019-09-03 05:54 | NUR ---
PATIENT HAS BECAME MORE ALERT SINCE SHE HAS BEEN ON THE FLOOR. SHE HAS BEEN SLEEPING A LOT BUT WHEN SHE IS UP SHE IS MORE ALERT. PATIENT IS A STAND BY ASSIST WHEN GETTING UP OUT OF THE BED. PATIENT HAS IV FLUIDS INFUSING IN HER RIGHT FOREARM IV AT 75 MLS/HR. WILL REPORT OFF TO DAY SHIFT.
[2019-09-03 09:23] LABS: PERITONEAL -POLYMORPHONUCLEAR 4.9 % (0-25); PERITONEAL FLUID RBC 0 /mm3 (0-0)
--- NOTE | 2019-09-03 14:37 | NUR ---
MARIA T met with the patient to complete initial intake. The patient lives in [place] with her daughter, Lyla. She recently (since last week) has moved back to [place] from [place]. The patient has a cane and a walker. The patient is independent with ADLs but her daughter does help her step into the tub. The patient's PCP is America Buckner APRN in [place] and patient receives medications from [facility] in [place]. The patient does not have advanced directives in the EMR but states they are completed and designate her boyfriend, Ángel Langley ( # [phone]). The patient plans to return home at discharge. MARIA T contacted Ángel about DPOA-HC and he will fax the paperwork. The patient is on SSI and states she has spoken to a cash applications representative and they will transfer her benefits to [place]. Joanna Pacheco with finance has spoke to the patient about signing forms for this hopsital. MARIA T collaborated with Joanna to obtain signatures from the patient. MARIA T scanned the signed forms to Joanna. MARIA T will continue to follow to ensure a safe discharge.
--- NOTE | 2019-09-03 15:49 | NUR ---
SW received a copy of the patient's DPOA-HC. SW placed in the patient's chart.
--- NOTE | 2019-09-03 16:50 | NUR ---
PT DID HAVE A ROUGH DAY. PT HAD PARACENTESIS DONE THIS AM. 4.1 L TAKEN OFF. PT THEN LEFT FLOOR FOR EGD. REPORT FROM TONA HENDERSON THAT THEY FOUND SMALL VARICES, BUT WAS NOT THE SOURCE OF THE BLEED AND TO MANAGE PAIN FROM LIVER CIRRHOSIS. PT CONTINUED THROUGHOUT THE DAY TO HAVE C/0 PAIN REGARDLESS OF PAIN MEDICATIONS GIVEN TO HER. PHYSICIAN NOTIFIED OF MORPHINE AND ROLAND "NOT CUTTING IT" PER PATIENTS STATEMENT, AND DR. CHOUDHARY SAID THAT THERE WAS NO OTHER MEDICATIONS THAT WE'RE ABLE TO GIVE TO HER DUE TO HER LIVER. DISCUSSED THIS WITH THE PATIENT WHO STATED SHE UNDERSTOOD. DURING THIS DAY, WE DID MANAGE HER PAIN THE BEST WE COULD. REPORT WAS GIVEN TO TONA HORTON. ENDORSED THE NEED FOR PAIN MEDICATIONS WHEN PATIENT ASKS PER MAY. ATTEMPTED TO RESTART IV IN THE LA AND LF, HOWEVER PT'S VEINS BLEW. DISCUSSED THE NEED FOR A NEW IV DUE TO PATIENTS PAIN DIRECTLY ABOVE THE CURRENT IV SITE ON THE RF. THERE IS MINIMAL SWELLING, AND NO DRAINAGE. ENDORSED THIS TO CL[place]ORD, AND STATED THE IV SITE WAS STILL ACCESIBLE, BUT SORE. NO FURTHER CONCERNS REGARDING THIS PATIENT.
[2019-09-03 18:42] LABS: HEMATOCRIT 27.1 % (37.0-47.0); HEMOGLOBIN 8.2 g/dl (12.5-16.0)
--- NOTE | 2019-09-03 23:42 | NUR ---
PATIENT CALLED OUT AND SAID THAT SHE WAS IN PAIN AND THAT HER DAUGHTER SAID THERE IS NO WAY SHE CAN BE IN THIS MUCH PAIN. ONCE IN ROOM SHE WAS UP WALKING AROUND AND AT THE SINK GETTING READY FOR BED.
--- NOTE | 2019-09-04 00:17 | NUR ---
IN TO GIVE PATIENT MORE PAIN MEDICATION. TALKED TO THE PATIENT THAT WITH HER CONDITION THAT SHE MAY NOT BE 100% PAIN FREE BUT SHE IS GETTING PAIN MEDICATION AROUND THE CLOCK TO HELP WITH THE PAIN. PATIENT STATED THAT SHE IS ALWAYS PAIN FREE IN THE EMERGENCY ROOM. THIS NURSE EDUCATED THE PATIENT THAT AFTER SHE WAS IN THE EMERGENCY ROOM AND GOT TO THE FLOOR, SHE WAS BARELY BREATHING AND WOULD NOT RESPOND TO VERBAL STIMULI OR TAPPING HER SHOULDERS.
--- NOTE | 2019-09-04 01:02 | NUR ---
TALKED TO DOCTOR FUNMI ABOUT PATIENT AND THE PAIN SHE IS EXPERICING. HER THOUGHT IT WAS MORE SEEKING ATTENTION. CANT GIVE ANY MORE MEDICATIONS DUE TO THE SIDE EFFECTS OF THE OTHER MEDICATIONS AND HER LIVER.
--- NOTE | 2019-09-04 01:20 | NUR ---
IN TO HELP PATIENT USE THE RESTROOM. PATIENT IV READDRESSED. TOLD PATIENT THAT THE DOCTOR DOES NOT WANT TO PRESCRIBE ANY MORE PAIN MEDICATION BECAUSE OF SIDE EFFECTS. PATIENT WAS UPSET ABOUT THE NEWS BUT I TOLD HER THAT IS WHAT HE SAID. THESE WERE THE DOCTORS ORDERS AND AFTER REVIEWING THE CHART AND SEEING HOW OFTEN PAIN MEDICATIONS WERE BEING ADMINISTERED. PATIENT DENIED HAVING THE LIGHT IN THE ROOM TURNED OFF. OFFERED TO GET PATIENT AN ICE PACK INSTEAD OF THE HEATING PACK TO USE AND SHE DENIED THE OFFER. WILL CONTINUE TO MONITOR
--- NOTE | 2019-09-04 01:38 | NUR ---
PATIENT WANTED A HOSPITAL DIRECTORY. WHEN ASKED FOR WHO SHE WAS TRYING TO GET AHOLD OF PATIENT COULD JUST SAY "CARE" AND IT WAS A 800 NUMBER. TOLD PATIENT THAT I DID NOT THINK WE HAD THIS AT OUR FACILITY
--- NOTE | 2019-09-04 01:41 | NUR ---
SUGAR LABORATORY ASSISTANT NOTIFIED OF PATIENT WANTING A HOSPITAL DIRECTORY AND THAT SHE WAS TRYING TO GET AHOLD OF CARE SOMETHING AND IT WAS AN 800 NUMBER
--- NOTE | 2019-09-04 02:01 | NUR ---
SOCIOCULTURAL ANTHROPOLOGY PROFESSOR IN TO TALK TO THE PATIENT. ICE WAS GIVEN TO THE PATIENT.
--- NOTE | 2019-09-04 02:09 | NUR ---
PATIENT CONTINUES TO ASK FOR ADDITIONAL PAIN MEDICATION ALTHOUGH STATING THAT THE PAIN MEDICATIONS SHE IS GETTING IS NOT HELPING. DR CHOUDHARY NOTIFIED AND NO FURTHER ORDERS ARE RECIEVED AT THIS TIME. WILL CONTINUE ON THE PAIN MEDICATION
--- NOTE | 2019-09-04 02:26 | NUR ---
AIR SAMPLING AND MONITORING CALLED DR CHOUDHARY AND TOLD THE DOCTOR ABOUT THE SITUTAION. HE ORDERED A CT SCAN AND DILUADID INSTEAD OF GENESIS
[2019-09-04 03:58] VITALS: BP 128/81; PULSE 78; TEMP 98
--- NOTE | 2019-09-04 04:01 | NUR ---
PATIENT CALLED PEDIATRIC GENETIC COUNSELOR AND APOLOGIZED TO THIS RN FOR HER BEHAVIOR BECAUSE SHE WAS IN PAIN.
--- NOTE | 2019-09-04 04:59 | NUR ---
PATIENT HAS BEEN UP AND DOWN ALL NIGHT. ONCE THE STIFF LEG DERRICK OPERATOR GOT A MEDICATION CHANGE SHE WAS ABLE TO SETTLE DOWN. IV DILUADID HELPED WITH HER PAIN. AFTER HER PAIN WAS DECREASING SHE CALLED OUT AND WANTED TO APOLOGIZE FOR HER BEHAVIOR SHE WAS JUST IN A LOT OF PAIN. PATIENT IS CALMER NOW AND MORE AT EASE. SHE DENIES ANY OTHER NEEDS AT THIS TIME. WILL REPORT OFF TO DAY SHIFT.
--- NOTE | 2019-09-04 06:50 | NUR ---
appears to be dozing, awakens easily, bedside shift report received from TONA Rodriguez
[2019-09-04 07:24] LABS: BASO % 0.7 % (0.0-2.0); EOS # 0.2 (0.0-0.7); EOS % 5.2 % (0-4.0); GRAN # 1.5 (1.4-6.5); GRAN % 53.6 % (42.2-75.2); LYMPH % 33.2 % (20.0-51.0); MEAN CELL VOLUME 84 fl (80.0-100.0); MEAN CORPUSCULAR HGB CONC 30 g/dl (33.0-37.0); MONO # 0.2 (0.1-0.6); PLATELET COUNT 132 K/mm3 (130-400); RED BLOOD COUNT 2.95 M/mm3 (4.10-5.30); REDCELL DISTRIBUTION WIDTH-CV 15.2 % (11.5-14.5)
[2019-09-04 07:26] LABS: HEMATOCRIT 24.8 % (37.0-47.0); HEMOGLOBIN 7.5 g/dl (12.5-16.0); MEAN CORPUSCULAR HEMOGLOBIN 25 pg (27.0-31.0)
[2019-09-04 07:30] LABS: ALBUMIN 2.3 gm/dL (3.5-5.0); BILIRUBIN,TOTAL 0.3 mg/dL (0.0-1.0); CALCIUM 7.9 mg/dL (8.4-10.2); CREATININE, serum 0.92 (0.52-1.25); POTASSIUM 4.2 mmol/L (3.4-5.0); TOTAL PROTEIN 5.4 gm/dL (6.4-8.2)
[2019-09-04 07:35] VITALS: BP 125/60; PULSE 72; TEMP 97.9
--- NOTE | 2019-09-04 08:05 | NUR ---
resting in bed, only had very small amount of breakfst, c/o nausea, also c/o pain and medicated with roxicodone 5mg, asking about IVmedication, explained would need to try and let pain pill work first, verbalizes understanding, medicated with zofran 4mg IV for c/os nausea, full assessment completed, see interventions for further info
--- NOTE | 2019-09-04 09:40 | NUR ---
Dr Monge and care team in to see patient
--- NOTE | 2019-09-04 10:20 | NUR ---
c/o pain to abdomen, does grimace and rub abdomen, medicated with dilaudid 0.5mg slow IV
--- NOTE | 2019-09-04 11:10 | NUR ---
appears to be sleeping, in bed on left side with eyes closed, resp quiet and easy
[2019-09-04 11:19] VITALS: BP 137/64; PULSE 85; TEMP 97.8
--- NOTE | 2019-09-04 11:35 | NUR ---
MARIA T met with the patient to revisit the discharge plan. The patient plans to return home with her daughter. Will continue to monitor.
--- NOTE | 2019-09-04 11:53 | NUR ---
First visit from the plate driller. prayed with patient. No other needs right now.
--- NOTE | 2019-09-04 12:15 | NUR ---
resting in bed, denies needs at this time
--- NOTE | 2019-09-04 13:15 | NUR ---
resting in bed with some grimacing, requesting something for pain, medicated with roxicodone 5mg
[2019-09-04 14:29] LABS: HEMATOCRIT 27.2 % (37.0-47.0); HEMOGLOBIN 8.2 g/dl (12.5-16.0)
--- NOTE | 2019-09-04 15:00 | NUR ---
informed her has said she will be able to go home, verbalizes undersanding but states she does not have ride, will assist her with transportation
[2019-09-04] MEDS ORDERED: ROXICODONE 55 MG/TAB PO ×2 (15:08)
--- NOTE | 2019-09-04 15:18 | NUR ---
discharged per WC
--- NOTE | 2019-09-04 15:32 | NUR ---
medicated with roxicodone 5mg po for continued c/os pain, a significant other will be hrere for her at around 1800 for discharge
[2019-09-04 15:36] VITALS: BP 138/65; PULSE 69; TEMP 98.2
--- NOTE | 2019-09-04 16:40 | NUR ---
discharge instructions given to patient and verbalizes understanding, INT discontinued
--- NOTE | 2019-09-04 16:59 | NUR ---
discharged per WC
== END 2019-09-04 16:59 | disposition home or self-care (01) | DRG 432 ==
LOC: COL.ER 19:15 → MEDICAL 21:35
PROVIDERS: Emergency Medicine; Internal Medicine Gastroenterology; Physician Assistant; Student in an Organized Health Care Education/Training Program; ADMIT Hospitalist
PROC: 0W9G3ZZ Drainage of Peritoneal Cavity, Percutaneous Approach (ICD-10-PCS; 2019-09-03)
PROC: 0DJ08ZZ Inspection of Upper Intestinal Tract, Via Natural or Artificial Opening Endoscopic (ICD-10-PCS; principal; 2019-09-03 12:00)
DX: K74.60 Unspecified cirrhosis of liver (principal); J96.01 Acute respiratory failure with hypoxia; I85.11 Secondary esophageal varices with bleeding; R18.8 Other ascites; E87.1 Hypo-osmolality and hyponatremia; B19.20 Unspecified viral hepatitis C without hepatic coma; F31.9 Bipolar disorder, unspecified; I10 Essential (primary) hypertension; E11.40 Type 2 diabetes mellitus with diabetic neuropathy, unspecified; D64.9 Anemia, unspecified; E11.65 Type 2 diabetes mellitus with hyperglycemia; Z88.0 Allergy status to penicillin; Z86.73 Personal history of transient ischemic attack (TIA), and cerebral infarction without residual deficits; Z79.4 Long term (current) use of insulin
CPT/HCPCS: 99223-AI; 99233-AI; C9113; G0378; J0780; J1170; J1644; J1815; J2270; J2405; J2704; J7030; J7040; Q9967

== ENCOUNTER 2019-09-14 18:40 | Emergency (ER) | payer MEDICAID ==
[~2019-09-14] VITALS: Ht 162.6 cm; Wt 56.4 kg
[~2019-09-14 18:40] MED LIST changes: +ROXICODONE 55 MG/TAB PO
[2019-09-14 18:51] VITALS: TEMP 99.2
[2019-09-14] MEDS ORDERED: ROXICODONE 55 MG/TAB PO (19:15)
[2019-09-14 19:24] LABS: BASO % 0.8 % (0.0-2.0); EOS # 0.1 (0.0-0.7); EOS % 2.4 % (0-4.0); GRAN # 2.4 (1.4-6.5); GRAN % 61.7 % (42.2-75.2); LYMPH % 27.2 % (20.0-51.0); MEAN CELL VOLUME 81 fl (80.0-100.0); MEAN CORPUSCULAR HGB CONC 31 g/dl (33.0-37.0); MEAN PLATELET VOLUME 10.3 fl (7.4-10.4); MONO # 0.3 (0.1-0.6); MONO % 7.6 % (1.7-9.3); PLATELET COUNT 194 K/mm3 (130-400); RED BLOOD COUNT 3.67 M/mm3 (4.10-5.30); REDCELL DISTRIBUTION WIDTH-CV 16.3 % (11.5-14.5)
[2019-09-14 19:25] LABS: HEMATOCRIT 29.8 % (37.0-47.0); HEMOGLOBIN 9.1 g/dl (12.5-16.0); MEAN CORPUSCULAR HEMOGLOBIN 25 pg (27.0-31.0)
[2019-09-14 19:35] LABS: ALBUMIN 2.9 gm/dL (3.5-5.0); BILIRUBIN,TOTAL 0.6 mg/dL (0.0-1.0); C-REACTIVE PROTEIN 1.1 mg/dL (0.0-0.9); CALCIUM 8.5 mg/dL (8.4-10.2); CREATININE, serum 0.95 (0.52-1.25); POTASSIUM 4.5 mmol/L (3.4-5.0); TOTAL PROTEIN 6.3 gm/dL (6.4-8.2)
[2019-09-14 20:14] LABS: COLLECTION METHOD CLEAN CATCH
[2019-09-14 20:24] LABS: PH 5 (5-8); SQUAMOUS EPITHELIAL 0-2 /hpf; URINE APPEARANCE Clear; URINE BACTERIA None Seen /hpf; URINE BILIRUBIN Negative (NEGATIVE); URINE BLOOD Negative (NEGATIVE); URINE COLOR Yellow; URINE GLUCOSE 1+ (NEGATIVE); URINE KETONE 1+ (NEGATIVE); URINE LEUKOCYTE ESTERASE Negative (NEGATIVE); URINE NITRATE Negative (NEGATIVE); URINE PROTEIN(semi-quant) 2+ (NEGATIVE); URINE UROBILINOGEN Negative (NEGATIVE)
[2019-09-14 20:48] VITALS: BP 145/79; PULSE 101
== END 2019-09-14 20:50 | disposition home or self-care (01) ==
LOC: COL.ER 18:40
PROVIDERS: Emergency Medicine
DX: R10.32 Left lower quadrant pain (principal); G89.29 Other chronic pain; Z79.4 Long term (current) use of insulin; Z79.891 Long term (current) use of opiate analgesic; Z87.19 Personal history of other diseases of the digestive system
CPT/HCPCS: J0780; J2270